=== PATIENT | female | born 1975 | race Caucasian/White ===

== ENCOUNTER → 2016-05-06 | Outpatient (CLI) | payer OTHER ==
[~2016-05-06] MED LIST: IBUP-1542 PO
--- NOTE | 2016-05-06 10:56 | RADRPT ---
PROCEDURE: Right Upper Quadrant Ultrasound. CLINICAL INDICATION: Cholecystitis TECHNIQUE: Multiple real-time images were acquired of the patient's right upper quadrant abdomen a nd retroperitoneum utilizing a high resolution transducer. COMPARISON: None FINDINGS: The liver measures 15.8 cm, and demonstrates diffusely increased echogenicity. The main portal vein is patent with proper directional flow. There is no intrahepatic biliary ductal dilatation. The extr ahepatic common bile duct measures 4 mm. The gallbladder is without stones, wall thickening, or pericholecystic fluid. The visualized pancreas is unremarkable. The right kidney measures 12.3 cm and demonstrates normal echotexture. There is no right renal calcu haley or hydronephrosis. The visualized abdominal aorta and IVC are grossly unremarkable. IMPRESSION: Severe fatty infiltration of the liver. No cholelithiasis or acute cholecystitis. Normal CBD. RPTAT: EE Physician Merari Date Time Electronically viewed and signed by Physician Merari on 05/06/2016 10:56 /
== END | disposition home or self-care (01) ==
LOC: U/S 10:01
PROVIDERS: ATTEND Internal Medicine
DX: K81.9 Cholecystitis, unspecified (principal); K76.0 Fatty (change of) liver, not elsewhere classified
CPT/HCPCS: 76705

== ENCOUNTER → 2016-05-08 | Outpatient (CLI) | payer OTHER ==
--- NOTE | 2016-05-08 13:14 | RADRPT ---
PROCEDURE: HIDA scan CLINICAL INDICATION: 40 -year-old patient with abdominal pain. TECHNIQUE: Following the intravenous injection of 8.2 mCi of Tc-99m mebrofenin, multiple images of the abdomen were obtained up to 60 minutes post injection. COMPARISON: No prior studies. FINDINGS: The liver is promptly visualized, demonstrates homogeneous distribution of radionuclide. There is visualization of the common bile duct, gallbladder and gastrointestinal activity within nor mal time. IMPRESSION: Unremarkable HIDA scan with no evidence to suggest the presence of common bile or cystic ducts obstr uction. RPTAT: HH .Greta Oneill MD, Date Time Electronically viewed and signed by .Greta Oneill MD, on 05/08/2016 13:13 .L/
== END | disposition home or self-care (01) ==
LOC: NUC 11:04
PROVIDERS: ATTEND Internal Medicine
DX: K81.9 Cholecystitis, unspecified (principal)
CPT/HCPCS: 78226; A9537

== ENCOUNTER → 2018-08-30 | Outpatient (CLI) | payer BC, OTHER ==
[~2018-08-30] MED LIST changes: +IOHEXOL 300MG/ML 150 ML BTL ONE; +SOD CHLORIDE 0.9% 100 ML ONE
== END | disposition home or self-care (01) ==
LOC: C/S 13:58
PROVIDERS: ATTEND Internal Medicine
DX: K37 Unspecified appendicitis (principal); R10.31 Right lower quadrant pain
CPT/HCPCS: 74177; Q9967